=== PATIENT | female | born 1970 | race Caucasian/White ===

== ENCOUNTER 2016-09-01 10:25 | Observation (INO) | payer OTHER ==
[2016-09-01 11:51] LABS: % IMMATURE GRANULYOCYTES 0.2 % (0.0-1.1); ABSOLUTE IMMATURE GRANULOCYTES 0.01 10^3/uL (0.00-0.10); ADD DIFF? NO; ADD MORPH? NO; ADD SCAN? NO; ATYPICAL LYMPHOCYTE FLAG 10 (0-99); FRAGMENT RBC FLAG 0 (0-99); HEMATOCRIT 36.1 % (38.0-47.0); HEMOGLOBIN 12.4 g/dL (12.6-16.3); LEFT SHIFT FLG 0 (0-99); LIPEMIA HEMOLYSIS FLAG 90 (0-99); MEAN CELL HEMOGLOBIN 30.9 pg (27.9-34.1); MEAN CELL HEMOGLOBIN CONCENTR. 34.3 g/dL (32.4-36.7); MEAN PLATELET VOLUME 10.1 fL (8.7-11.7); PLATELET CLUMPS FLAG 0 (0-99); PLATELET COUNT 246 10^3/uL (150-400); RED BLOOD CELL COUNT 4.01 10^6/uL (4.18-5.33); RED CELL DISTRIBUTION WIDTH 12.5 % (11.5-15.2)
--- NOTE | 2016-09-01 11:59 | EDPHY ---
H & P Stated Complaint: Sxs for years,increasing neuropathy both feet;here for testing Time Seen by Provider: 09/01/16 11:03 HPI/ROS: CHIEF COMPLAINT: HISTORY OF PRESENT ILLNESS: 46-year-old female in the ER today because she saw her neurologist Dr. Mikayla Schafer [facility] who recommended she come to the ER for admission, MRI, lumbar puncture, neurology consultation complaints of progressive neurologic symptoms. Symptoms started 3 years ago while she was . At that time started experiencing bilateral hand weakness and paresthesias thought to be secondary to carpal tunnel syndrome. After her she had bilateral carpal tunnel repair and symptoms continued.. Thereafter she had bilateral tarsal tunnel syndrome diagnosed. Since January 2016 she has been experiencing bilateral foot pain, paresthesia and notes that in the past few weeks has had progressive difficulty ambulating because of foot pain, paresthesia with new development of right foot drop. If she concentrates she is able obliterate the footdrop however notes that for the past week she has had a new abnormal gait. She has had no visual disturbance issues, no diplopia, no slurred speech, no incontinence, no aphasia, no head injury, no headache, no slurred speech Family history significant for father with ALS. REVIEW OF SYSTEMS: A ten point review of systems was performed and is negative with the exception of the items mentioned in the HPI PAST MEDICAL & SURGICAL HISTORY: No pertinent medical or surgical history SOCIAL HISTORY: Nonsmoker, FAMILY HISTORY: father history of ALS PHYSICAL EXAM (Prior to examination, patient consented to physical exam, hands were washed and my usual and customary physical exam procedures followed) 1) GENERAL: Well-developed, well-nourished, alert and oriented. Appears to be in no acute distress. smiling, shakes my hand. 2) HEAD: Normocephalic, atraumatic 3) HEENT: Pupils equal, round, reactive to light bilaterally. Sclera anicteric. Nasopharynx, oropharynx, clear, no lesions. Ears bilaterally with normal tympanic membranes. 4) NECK: Full range of motion, no meningeal signs. 5) LUNGS: Clear auscultation bilaterally, no wheezes, no rhonchi, no retractions. 6) HEART: Regular rate and rhythm, no murmur, no heave, no gallop. 7) ABDOMEN: No guarding, no rebound, no focal tenderness, negative McBurney's, negative Borges's, negative Rovsing's, negative peritoneal sign, 8) MUSCULOSKELETAL: Moving all extremities, no focal areas of tenderness, no obvious trauma. No peripheral edema or discoloration. 9) BACK: No CVA tenderness, no midline vertebral tenderness, no fluctuance, no step-off, no obvious trauma, no visual or palpable abnormality. 10) SKIN: No rash, no petechiae. 11) Psychiatric: Patient is oriented X 3, there is no agitation. 12) NEURO: Awake, alert, and oriented to person, place and time. Answers questions appropriately. Cerebellar dysfunction is noted. Left upper extremity weakness noted. Right foot drop noted with gait, obliterated if she concentrates. reflexes 2+. DIFFERENTIAL DIAGNOSIS: no particular include but limited to CVA, MS, ALS, malignancy - Personal History LMP (Females 10-55): Now Current Tetanus Diphtheria and Acellular Pertussis (TDAP): Yes Tetanus Vaccine Date: 04/2014 - Medical/Surgical History Hx Asthma: No Hx Chronic Respiratory Disease: No Hx Diabetes: No Hx Cardiac Disease: No Hx Renal Disease: No Hx Cirrhosis: No Hx Alcoholism: No Hx HIV/AIDS: No Hx Splenectomy or Spleen Trauma: No Other PMH: IVF , tubal ligation. pt has 13 yo son with severe autism. Melanoma, area excised when pt 35 yo - Social History Smoking Status: Never smoked Constitutional: Initial Vital Signs Temperature (C) 36.6 C 09/01/16 10:32 Heart Rate 65 09/01/16 10:32 Respiratory Rate 18 09/01/16 10:32 Blood Pressure 112/79 09/01/16 10:32 O2 Sat (%) 95 09/01/16 10:32 O2 Delivery Mode Room Air Allergies/Adverse Reactions: adhesive tape Allergy (Verified 09/01/16 13:00) Itching Home Medications: Medication Instructions Recorded Cholecalciferol Vit D3 [Vitamin D3 5,000 units PO DAILY 09/01/16 (*)] Gabapentin [Neurontin 100 MG (*)] 100 mg PO DAILY PRN 09/01/16 Gabapentin [Neurontin 300 MG (*)] 300 mg PO QID PRN 09/01/16 Herbals/Supplements -Info Only 1 ea PO DAILY 09/01/16 Multivitamins [Multivitamin (*)] 1 each PO DAILY 09/01/16 [place]-3 Fatty Acids [Fish Oil 1000 1,000 mg PO DAILY 09/01/16 mg (*)] Vitamin B Complex [B Complex] 1 each PO DAILY 09/01/16 celeCOXIB [Celebrex (*)] 200 mg PO BID 09/01/16 Medical Decision Making ED Course/Re-evaluation: 12:01 p.m.:: I discussed case Dr. Landon Quiros who had spoken with the patient' s neurologist this morning who recommended she obtain MRI, lumbar puncture, admission. doubt acute CVA. She does have abnormal neurologic findings on exam , the specific etiology of which is not completely clear at this time. This has been a progressive issue for the past 3 years. I recommended admission which she is agreeable with. I consulted with Dr. Maverick Zaragoza hospitalist who will admit patient to Dr. Shefali Torres - Data Points Laboratory Results: Laboratory Results 09/01/16 11:34 09/01/16 11:34 09/01/16 09/01/16 09/01/16 11:34 11:34 11:34 WBC 4.73 10^3/uL 10^3/uL (3.80-9.50) RBC 4.01 10^6/uL L 10^6/uL (4.18-5.33) Hgb 12.4 g/dL L g/dL (12.6-16.3) Hct 36.1 % L % (38.0-47.0) MCV 90.0 fL fL (81.5-99.8) MCH 30.9 pg pg (27.9-34.1) MCHC 34.3 g/dL g/dL (32.4-36.7) RDW 12.5 % % (11.5-15.2) Plt Count 246 10^3/uL 10^3/uL (150-400) MPV 10.1 fL fL (8.7-11.7) Neut % (Auto) 40.4 % % (39.3-74.2) Lymph % (Auto) 51.4 % H % (15.0-45.0) Hawkins % (Auto) 5.7 % % (4.5-13.0) Eos % (Auto) 1.7 % % (0.6-7.6) Baso % (Auto) 0.6 % % (0.3-1.7) Nucleat RBC Rel Count 0.0 % % (0.0-0.2) Absolute Neuts (auto) 1.91 10^3/uL 10^3/uL (1.70-6.50) Absolute Lymphs (auto) 2.43 10^3/uL 10^3/uL (1.00-3.00) Absolute Monos (auto) 0.27 10^3/uL L 10^3/uL (0.30-0.80) Absolute Eos (auto) 0.08 10^3/uL 10^3/uL (0.03-0.40) Absolute Basos (auto) 0.03 10^3/uL 10^3/uL (0.02-0.10) Absolute Nucleated RBC 0.00 10^3/uL 10^3/uL (0-0.01) Immature Gran % 0.2 % % (0.0-1.1) Immature Gran # 0.01 10^3/uL 10^3/uL (0.00-0.10) PT INR APTT Sodium 142 mEq/L mEq/L (134-144) Potassium 4.3 mEq/L mEq/L (3.5-5.2) Chloride 107 mEq/L mEq/L (97-110) Carbon Dioxide 22 mEq/l mEq/l (22-31) Anion Gap 13 mEq/L mEq/L (8-16) BUN 9 mg/dL mg/dL (7-23) Creatinine 0.7 mg/dL mg/dL (0.6-1.0) Estimated GFR > 60 Glucose 98 mg/dL mg/dL (70-100) Calcium 9.8 mg/dL mg/dL (8.5-10.4) Creatine Kinase 151 IU/L IU/L (0-156) Beta HCG, Qual NEGATIVE 09/01/16 11:00 WBC RBC Hgb Hct MCV MCH MCHC RDW Plt Count MPV Neut % (Auto) Lymph % (Auto) Hawkins % (Auto) Eos % (Auto) Baso % (Auto) Nucleat RBC Rel Count Absolute Neuts (auto) Absolute Lymphs (auto) Absolute Monos (auto) Absolute Eos (auto) Absolute Basos (auto) Absolute Nucleated RBC Immature Gran % Immature Gran # PT 14.0 SEC SEC (12.0-15.0) INR 1.09 (0.83-1.16) APTT 30.2 SEC SEC (23.0-38.0) Sodium Potassium Chloride Carbon Dioxide Anion Gap BUN Creatinine Estimated GFR Glucose Calcium Creatine Kinase Beta HCG, Qual Departure - Departure Disposition: [facility] Inpatient Acute Clinical Impression: Cerebellar dysfunction, Foot drop, right Condition: Fair
[2016-09-01 12:01] LABS: ANION GAP 13 mEq/L (8-16); CALCIUM 9.8 mg/dL (8.5-10.4); CARBON DIOXIDE 22 mEq/l (22-31); CHLORIDE 107 mEq/L (97-110); CREATININE 0.7 mg/dL (0.6-1.0); GLOMERULAR FILTRATION RATE > 60; GLUCOSE 98 mg/dL (70-100); POTASSIUM 4.3 mEq/L (3.5-5.2); SODIUM 142 mEq/L (134-144)
[2016-09-01] MEDS: HYDROCORTISONE 1% CREAM TP SCH ×2 (12:12→20:22)
[2016-09-01] MEDS ORDERED: ONDANSETRON DISINTEGRATING 4 MG TAB PO PRN (12:29)
[2016-09-01] MEDS ORDERED: ONDANSETRON 4 MG/2 ML VIAL IVP PRN (12:29)
[2016-09-01 12:59] LABS: INR 1.09 (0.83-1.16)
[2016-09-01 13:00] LABS: APTT 30.2 SEC (23.0-38.0)
--- NOTE | 2016-09-01 14:38 | GHP ---
DATE OF ADMISSION: 09/01/2016 CHIEF COMPLAINT: Weakness. HISTORY OF PRESENT ILLNESS: A 46-year-old female who presents with complaints of sudden onset diffi culty walking. The patient reports the evening prior to presentation noting that she was attempting to ambulate before bed, but she was having a difficult time lifting her toes. The patient has a lo ngstanding history of peripheral neuropathy but describes the inability to move her limbs as a new s ymptom. The patient denied any notable pain associated. Denies any recent fevers or chills. Denie s difficulty swallowing, changes in her vision, or chest pain. Denies shortness of breath. Reports recurrent intermittent constipation and diarrhea, most recently constipation. Denies any bloody st ools or dark stools. Denies any recent sick contacts or peripheral rashes. The patient describes a sensation that her feet and her left hand are simply not responding to her cues in motion. Additio stephanie describing a sensation of numbness and tingling in her left upper extremity that is more prono unced than her neuropathy in the past. PAST MEDICAL HISTORY: 1. Reactive arthritis. 2. Peripheral neuropathy of the hands and feet, etiology undiagnosed. SOCIAL HISTORY: Negative for tobacco. Patient drinks 1 or 2 alcoholic beverages a week. Uses linh caroline a couple times a year. No illicit drugs or history of IV drug use. FAMILY HISTORY: Notable for ALS in a maternal aunt. REVIEW OF SYSTEMS: 10-point review of systems is negative with the exception of that reported in th e HPI. PHYSICAL EXAMINATION: VITAL SIGNS: Blood pressure 112/79, heart rate 65, respiratory rate 18, 95% on room air, 36.6. GENERAL: This is a healthy-appearing middle-aged female in no acute distress. HEENT: Notable for moist mucous membranes. Eye exam is negative for any icterus. CARDIAC: Patien t has regular rate and rhythm with a 1/6 systolic murmur. PULMONARY: Good respiratory effort. Clifford ar to auscultation bilaterally. GASTROINTESTINAL: Positive bowel sounds. Soft and nontender in al l 4 quadrants. MUSCULOSKELETAL: Negative for any lower extremity edema. SKIN: Negative for any r ashes. NEUROLOGIC: Cranial nerves 2-12 are grossly intact. Patient's xmajkj-oa-jwvr is delayed on both sides and labored. Gait is noted to have footdrop of the right foot with forward gait. Howev er, gait is stable. Her sensation is diminished in her right lower extremity and left upper extremi ty but intact throughout. Her strength is 5/5 on my examination. No pronator drift is noted. DATA: White count 4.7, hematocrit 36.1, platelets of 246. Telemetry, which I personally reviewed and interpreted, shows sinus rhythm. ASSESSMENT AND PLAN: This is a 46-year-old female with a history of peripheral neuropathy, presenti with acute weakness of the right lower extremity and left upper extremity. 1. Acute neurologic symptoms. These are variable with weakness on bearing limbs, right lower and l eft upper, as well as cerebellar signs on neurologic exam. I discussed the case with Neurology and the differential is broad, including possible stroke, underlying neurologic conditions and/or anxiet y/stress and somatization. We will begin our workup with MRI of the brain, thoracic, lumbar, and sa cral spine. Basic labs have been sent, and we will obtain outside records for her neuropathy workup from Dr. Schafer, her primary neurologist. 2. Arthritis. The patient does not take pval-ghe-eenwwyv medications. We will continue to monitor her symptoms. I have ordered PT, OT, and speech therapy to assist in the neurologic evaluation. T he patient will be admitted to [address] [place] [address] for rule out stroke. Prophylaxis, ambulation. Hol ding Lovenox at this time until a decision regarding LP has been made. DIET: Regular. DISPOSITION: I am expecting greater than 2 midnights as patient is requiring diagnostic workup for new neurologic deficits. I have discussed the case with Dr. Muniz from Neurology. Patient will be a dmitted for a diagnostic workup. /[id number]/MODL
[2016-09-01 15:10] LABS: COLOR YELLOW; LEUKOCYTE ESTERASE,URINE NEGATIVE (NEGATIVE); NITRITE,URINE NEGATIVE (NEGATIVE)
[2016-09-01 15:31] LABS: BACTERIA TRACE /hpf (NONE SEEN); RBC,URINE 50-182 /hpf (0-3)
[2016-09-01] MEDS: GABAPENTIN 300 MG CAP PO PRN (15:36)
[2016-09-01] MEDS ORDERED: LORazepam 1 MG TAB PO ONE (17:33)
[2016-09-01] MEDS: ACETAMINOPHEN 325 MG TAB PO PRN (17:57)
--- NOTE | 2016-09-01 19:04 | GCON ---
INPATIENT CONSULTATION NOTE DATE OF CONSULTATION: 09/01/2016 CHIEF COMPLAINT: Increasing weakness and pain in arms and legs for 3 years. HISTORY OF PRESENT ILLNESS: Dr. Shefali Torres of the hospitalist service consulted Neurology for evaluation of patient's symptoms. Results of the evaluation placed in the EMR for her review. This is a 46-year-old female who reported in 2013, following , she began developing bilateral hand weakness and paresthesias thought to be secondary to carpal tunnel syndrome. After her , she had bilateral carpal tunnel repair but symptoms continued. Since January 2016, she has been experiencing bilateral foot pain as well and paresthesias. In the last few weeks, she has noted progressive difficulty ambulating because of the foot pain and paresthesias and new development of a right foot drop. If she concentrates , she is able to walk well. Her father has ALS. REVIEW OF SYSTEMS: A 10-point review of systems is negative except what was placed in HPI. PAST MEDICAL HISTORY: Negative. PAST SURGICAL HISTORY: Negative. SOCIAL HISTORY: . Nonsmoker. FAMILY HISTORY: ALS. PHYSICAL EXAMINATION: VITAL SIGNS: Blood pressure is 112/79, heart rate 65, respirations 18, saturating 95% on room air. Temperature 36.6 degrees Celsius. GENERAL: No acute distress. EYES: Funduscopic: Could not visualize optic discs. LUNGS: Clear to auscultation bilaterally. No rhonchi or rales. HEART : Regular rate and rhythm. No murmurs. No carotid bruits auscultated. NEUROLOGIC: Mental status: Alert and oriented to person, place, and date. Memory, attention, language and fund of knowledge all appear intact. Cranial nerves: Pupils equal, round, react to light. Visual hammonds full to confrontation. Extraocular muscles intact. Bilateral face intact. Sensation, motor movement, hearing intact to conversation. Uvula rises symmetrically. Tongue protrudes in the midline. Traps 5/5 strength. Motor: Normal tone and strength in all 4 extremities. Sensory: All 4 extremities intact to light touch. Reflexes: Bilateral biceps, brachioradialis, patella, and Achilles 2/ 4. Coordination: Bilateral xjflnw-fg-usat, bvke-ux-qrws, rapid alternating movements are normal. Gait deferred. LABORATORY DATA: On September 01, 2016: CBC shows hematocrit 36.1. Coagulation panel unremarkable. Chemistry unremarkable. HCG is negative. Radiology: Brain and total spine MRI were unremarkable. I personally visualized the brain MRI. ASSESSMENT: Subjective sense of bilateral hand discomfort and tingling and subjective weakness since 2013: She has been working with a community neurologist, Dr. Morales , for a period of time and reports that no cause has been found for her symptoms. The patient states she had been pending referral to [facility]'s neuromuscular expert, but her symptoms had worsened yesterday, so she was told by her neurologist to come to the hospital for an MRI and consideration for a lumbar puncture. At this time, I am not sure what is causing the patient's neurologic problems, but will proceed with MRI and lumbar puncture to further evaluate. RECOMMENDATIONS: 1. Brain and total spine MRI with and without contrast. If this is unremarkable for cause, we can proceed with a lumbar puncture to include cell count, protein, glucose, culture and oligoclonal bands. 2. Patient can follow up with her outpatient neurologist, Dr. Carmen Schafer, for outpatient neurologic care. 3. Neurology Service will continue to closely follow this patient. /[id number]/MODL MTDD
[2016-09-01] MEDS ORDERED: GADOBUTROL 10 ML VIAL IVP ONE (21:21)
[2016-09-02 06:08] LABS: ANION GAP 8 mEq/L (8-16); CALCIUM 8.9 mg/dL (8.5-10.4); CARBON DIOXIDE 24 mEq/l (22-31); CHLORIDE 108 mEq/L (97-110); CREATININE 0.7 mg/dL (0.6-1.0); GLOMERULAR FILTRATION RATE > 60; GLUCOSE 86 mg/dL (70-100); POTASSIUM 4.2 mEq/L (3.5-5.2); SODIUM 140 mEq/L (134-144)
[2016-09-02 08:20] VITALS: RESP 15
[2016-09-02] MEDS ORDERED: Herbals/Supplements -Info Only PO SCH (09:00)
[2016-09-02] MEDS ORDERED: OMEGA-3 FATTY ACIDS 1,000 MG CAP PO SCH (09:00)
[2016-09-02] MEDS ORDERED: VITAMIN B COMPLEX 1 EA CAP/TAB PO SCH ×2 (09:00)
[2016-09-02] MEDS ORDERED: MULTIVITAMINS 1 EACH TAB PO SCH (09:00)
[2016-09-02] MEDS ORDERED: CHOLECALCIFEROL VIT D3 1,000 UNITS TAB PO SCH (09:00)
[2016-09-02] MEDS: HYDROCORTISONE 1% CREAM TP SCH (09:15)
[2016-09-02] MEDS: GABAPENTIN 300 MG CAP PO PRN ×2 (09:16→11:12)
[2016-09-02] MEDS: ACETAMINOPHEN 325 MG TAB PO PRN (11:12)
--- NOTE | 2016-09-02 11:25 | NEUROPROG ---
Assessment: The brain and total spine MRI showed no explanation for her symptoms. Recommend proceeding with lumbar puncture with labs to include: cell count, protein, glucose, culture, and oligoclonal bands. This is the plan recommended by her outpatient neurologist [place] [facility] [place] If the lumbar puncture results are unconcerning she can discharge and f/u with Dr. Schafer. I will see her on rounds this afternoon to answer any questions she has. Objective: Vital Signs Temp Pulse Resp BP Pulse Ox 36.6 C 58 L 15 112/73 95 09/02/16 08:19 09/02/16 08:19 09/02/16 08:19 09/02/16 08:19 09/02/16 08:19 Laboratory Results 09/02/16 05:30 09/01/16 09/02/16 09/03/16 05:59 05:59 05:59 Intake Total 700 Balance 700 PT 14.0 SEC (12.0-15.0) 09/01/16 11:00 INR 1.09 (0.83-1.16) 09/01/16 11:00 Allergies/Adverse Reactions: adhesive tape Allergy (Verified 09/01/16 13:00) Itching
[2016-09-02] MEDS ORDERED: LIDOCAINE 1% 30 ML SDV ONE (15:02)
[2016-09-02] MEDS ORDERED: NA BICARBONATE 50 MEQ/50 ML VIAL ONE (15:02)
[2016-09-02 16:15] LABS: PROTEIN, CSF 29 mg/dL (12-60)
[2016-09-02 16:19] LABS: CSF APPEARANCE CLEAR (CLEAR); CSF COLOR COLORLESS (COLORLESS); CSF SUPERNATANT COLORLESS (COLORLESS); WBC, CSF 0 /mm3 (0-5)
[2016-09-02 16:48] VITALS: BP 100/66; PULSE 55; TEMP 98.4; O2SAT 98
--- NOTE | 2016-09-02 18:48 | GDS ---
DISCHARGE DIAGNOSES: Increased weakness and pain in arms and legs. STUDIES AND PROCEDURES DONE: 1. MRI of the brain. 2. MRI of the cervical spine. 3. MRI of the lumbar spine. 4. MRI of the thoracic spine. 5. Lumbar puncture. CONSULTATIONS: Dr. Muniz of Neurology. PHYSICAL EXAMINATION: GENERAL: The patient is alert. VITAL SIGNS: Afebrile 36.6, pulse is 58, re spiratory rate 15, blood pressure is 112/73. She is saturating 95% on room air. I have seen and ev aluated the patient on the day of discharge. HOSPITAL COURSE: The patient is a 46-year-old female admitted to the hospital. Has complaints of i ncreasing weakness and pain in arms and legs. During this hospitalization, she was evaluated for th e etiology of her complaints of increasing weakness in her arms and legs. She received an MRI of he r entire spine as well as an MRI of her brain, which were all negative. She received a consultation from Neurology, as well as a lumbar puncture. No etiology was identified at the time of this hospi talization. She will be discharged home to follow up in the outpatient setting with her primary rick rologist as well as her primary care physician. There are pending laboratory evaluations at the lisa e of disposition that can be followed by her outpatient neurologist. DISCHARGE MEDICATIONS: Please refer to the EMR form. I have continued the patient's previously pre scribed home medications. I have reviewed the patient's care with Dr. Rupert Muniz of Neurology. He is in agreement with her being discharged from the hospital. I spent greater than 35 minutes in the care, coordination, and disposition of this patient's care. /[id number]/MODL
--- NOTE | 2016-09-02 20:36 | NEUROPROG ---
Assessment: The brain and total spine MRI showed no explanation for her symptoms. The spinal tap CSF labs showed slightly traumatic tap with RBC of 18 but was otherwise unremarkable with no clear abnormality to explain her symptoms. She will be discharged and has a pending appointemtn with [facility] Neurology service on Wednesday to further evaluate her symptoms. 35 min spent with her and her sister, majority of time spent counseling on her symptoms, possible diagnosis, and further treatment options. Objective: Vital Signs Temp Pulse Resp BP Pulse Ox 36.9 C 55 L 15 100/66 98 09/02/16 16:47 09/02/16 16:47 09/02/16 16:47 09/02/16 16:47 09/02/16 16:47 Microbiology 09/02/16 14:27 Gram Stain - Final Cerebral Spinal Fluid Laboratory Results 09/02/16 05:30 09/01/16 09/02/16 09/03/16 05:59 05:59 05:59 Intake Total 700 5000 Balance 700 5000 PT 14.0 SEC (12.0-15.0) 09/01/16 11:00 INR 1.09 (0.83-1.16) 09/01/16 11:00 Allergies/Adverse Reactions: adhesive tape Allergy (Verified 09/01/16 13:00) Itching
[2016-09-04 13:25] LABS: INTERPRETATION 0 bands (<4); OLIGOCLONAL BANDING CSF 0 bands; OLIGOCLONAL BANDING SERUM 0 bands
== END 2016-09-02 17:31 | disposition home or self-care (01) ==
LOC: INTOOBSV 11:43 → F3N 15:51
PROVIDERS: ADMIT Internal Medicine; ATTEND Internal Medicine
PROC: 009U3ZX Drainage of Spinal Canal, Percutaneous Approach, Diagnostic (ICD-10-PCS; principal; 2016-09-01)
DX: R53.1 Weakness (principal); G62.9 Polyneuropathy, unspecified; M21.371 Foot drop, right foot; M02.30 Reiter's disease, unspecified site; Z85.820 Personal history of malignant melanoma of skin
CPT/HCPCS: 62270; 70553; 72156; 72157; 72158; 92610; 97116; 97162; 97165; 99285; G0378; 83916-90; A9585

== ENCOUNTER → 2017-01-10 | Outpatient (CLI) | payer OTHER | LOC: FCPNEURO 23:24 | PROVIDERS: ATTEND Student in an Organized Health Care Education/Training Program | DX: G47.33 Obstructive sleep apnea (adult) (pediatric) (principal); G47.11 Idiopathic hypersomnia with long sleep time ==